=== PATIENT | male | born 1985 | race Caucasian/White ===

== ENCOUNTER 2018-03-10 00:25 | Emergency (ER) | payer SELFPAY ==
[~2018-03-10] VITALS: Ht 185.4 cm; Wt 111.0 kg
[~2018-03-10 00:25] MED LIST: AMOXICILLIN875 MG PO; ANAPROX275 MG OR; AUGMENTIN875TAB PO; FLONASE NASAL50 MCG; KEFLEX500 MG OR; LEVOTHYROXIN125 MC1 PO; LEVOTHYROXIN150 MC1 PO; LEVOTHYROXIN25 MC1; LORTAB 5/3255 MG PO; NAPROSYN500 MG PO; NO MEDS; PAROXETINE20 MG PO; PROMETHAZINE12.5 MG PO
[2018-03-10] MEDS ORDERED: TAM75CAP PO (01:53)
[2018-03-10 02:20] VITALS: BP 139/82
== END 2018-03-10 02:22 | disposition home or self-care (01) | DRG 195 ==
LOC: ED 00:25
DX: J10.1 Influenza due to other identified influenza virus with other respiratory manifestations (principal); R50.9 Fever, unspecified; R09.89 Other specified symptoms and signs involving the circulatory and respiratory systems
CPT/HCPCS: G9019

== ENCOUNTER 2018-12-21 04:14 | Emergency (ER) | payer BC ==
[~2018-12-21] VITALS: Ht 185.4 cm; Wt 104.5 kg
[~2018-12-21 04:14] MED LIST changes: +TAM75CAP PO
[2018-12-21] MEDS ORDERED: LEVOTHYROXIN200 MCG PO (04:27)
[2018-12-21 04:46] LABS: IMMATURE GRANULOCYTES 0.3 % (0.0-5.0); MEAN CELL VOLUME 86.2 fL CALC (80.0-100.0); MEAN CORPUSCULAR HGB 28.6 pG CALC (26.0-32.0); MEAN CORPUSCULAR HGB CONC 33.2 g/L CALC (32.0-36.0); NEUT# 2.52 thou/uL (1.82-7.42); RED BLOOD COUNT 5.52 mill/uL (4.70-6.10); RED CELL DISTRI WIDTH 12.5 % (11.5-15.5)
[2018-12-21 04:47] LABS: HEMATOCRIT 47.6 % (39.0-50.0); HEMOGLOBIN 15.8 g/dl (14.0-18.0)
[2018-12-21 04:55] LABS: ALKALINE PHOSPHATASE 87 u/l (38-126); AMYLASE 56 u/l (30-110); ANION GAP 15 (6-22 (CALC)); BILIRUBIN, TOTAL 0.6 mg/dL (0.0-1.4); BUN 17 mg/dL (9-20); BUN/CREATININE RATIO 16 (12-20 (CALC)); CARBON DIOXIDE 28 mmol/l (22-30); CHLORIDE 105 mmol/l (95-108); CREATININE 1.1 mg/dL (0.7-1.3); GFR > 60 ML/MIN (>=60 (CALC)); GFR FOR AFR.AMER. > 60 ML/MIN (>=60 (CALC)); LIPASE 125 u/l (23-300); POTASSIUM 4.1 mmol/l (3.5-5.1); SODIUM 143 mmol/l (137-146); TOTAL PROTEIN 7.5 g/dL (6.3-8.2)
[2018-12-21 05:14] LABS: ALBUMIN 4.6 g/dL (3.2-5.0); SGOT/AST 42 u/l (17-59)
[2018-12-21 05:31] LABS: URINE BILIRUBIN - DIPSTICK NEGATIVE (NEGATIVE); URINE BLOOD DIPSTICK SMALL (NEGATIVE); URINE COLOR YELLOW; URINE GLUCOSE - DIPSTICK NEGATIVE (NEGATIVE); URINE KETONE NEGATIVE (NEGATIVE); URINE LEUK ESTERASE NEGATIVE (NEGATIVE); URINE NITRITE - DIPSTICK NEGATIVE (Negative); URINE PH 5.5 (4.5-8.0); URINE PROTEIN - DIPSTICK NEGATIVE (NEG-TRACE); URINE UROBILINOGEN - DIPSTICK 0.2 E.U./dL (0.2)
[2018-12-21 05:32] LABS: URINE RBC 0-2 RBC/hpf (0-5)
[2018-12-21] MEDS ORDERED: LORTAB 5/3255 MG PO (05:32)
[2018-12-21] MEDS ORDERED: TAMSULOSIN0.4 MG PO (05:32)
[2018-12-21 05:45] VITALS: BP 136/76
== END 2018-12-21 05:45 | disposition home or self-care (01) | DRG 694 ==
LOC: ED 04:14
PROVIDERS: Family Medicine
DX: N13.2 Hydronephrosis with renal and ureteral calculous obstruction (principal); E03.9 Hypothyroidism, unspecified

== ENCOUNTER 2018-12-23 20:07 | Emergency (ER) | payer BC ==
[~2018-12-23] VITALS: Ht 185.4 cm; Wt 104.5 kg
[~2018-12-23 20:07] MED LIST changes: +LEVOTHYROXIN200 MCG PO; +TAMSULOSIN0.4 MG PO
[2018-12-23 21:04] LABS: HEMATOCRIT 43.3 % (39.0-50.0); HEMOGLOBIN 14.8 g/dl (14.0-18.0); IMMATURE GRANULOCYTES 0.2 % (0.0-5.0); MEAN CELL VOLUME 84.2 fL CALC (80.0-100.0); MEAN CORPUSCULAR HGB 28.8 pG CALC (26.0-32.0); MEAN CORPUSCULAR HGB CONC 34.2 g/L CALC (32.0-36.0); NEUT# 4.42 thou/uL (1.82-7.42); RED BLOOD COUNT 5.14 mill/uL (4.70-6.10); RED CELL DISTRI WIDTH 12.3 % (11.5-15.5)
[2018-12-23 21:17] LABS: URINE BILIRUBIN - DIPSTICK NEGATIVE (NEGATIVE); URINE BLOOD DIPSTICK LARGE (NEGATIVE); URINE COLOR YELLOW; URINE GLUCOSE - DIPSTICK NEGATIVE (NEGATIVE); URINE KETONE NEGATIVE (NEGATIVE); URINE LEUK ESTERASE NEGATIVE (NEGATIVE); URINE NITRITE - DIPSTICK NEGATIVE (Negative); URINE PH 5.5 (4.5-8.0); URINE PROTEIN - DIPSTICK NEGATIVE (NEG-TRACE); URINE SPECIFIC GRAVITY >=1.030; URINE UROBILINOGEN - DIPSTICK 0.2 E.U./dL (0.2)
[2018-12-23 21:24] LABS: ALBUMIN 4.5 g/dL (3.2-5.0); ALKALINE PHOSPHATASE 79 u/l (38-126); ANION GAP 16 (6-22 (CALC)); BILIRUBIN, TOTAL 0.7 mg/dL (0.0-1.4); BUN 15 mg/dL (9-20); BUN/CREATININE RATIO 11 (12-20 (CALC)); CARBON DIOXIDE 27 mmol/l (22-30); CHLORIDE 105 mmol/l (95-108); CREATININE 1.4 mg/dL (0.7-1.3); GFR 58 ML/MIN (>=60 (CALC)); GFR FOR AFR.AMER. > 60 ML/MIN (>=60 (CALC)); POTASSIUM 4.1 mmol/l (3.5-5.1); SGOT/AST 33 u/l (17-59); SODIUM 144 mmol/l (137-146); TOTAL PROTEIN 7.3 g/dL (6.3-8.2)
[2018-12-23 21:45] LABS: URINE RBC TNTC RBC/hpf (0-5); URINE SQUAMOUS EPITHELIAL CELL FEW EPI/hpf (0-FEW)
[2018-12-23 22:00] VITALS: BP 132/77
[2018-12-23] MEDS ORDERED: ZOFRAN4 M1 PO (22:32)
[2018-12-23] MEDS ORDERED: TORADOL PO (22:32)
== END 2018-12-23 22:50 | disposition home or self-care (01) | DRG 694 ==
LOC: ED 20:07
DX: N20.1 Calculus of ureter (principal); N20.0 Calculus of kidney; E03.9 Hypothyroidism, unspecified

== ENCOUNTER 2021-12-09 23:30 | Emergency (ER) | payer OTHER ==
[~2021-12-09] VITALS: Ht 185.4 cm; Wt 118.2 kg
[~2021-12-09 23:30] MED LIST changes: +TORADOL PO; +ZOFRAN4 M1 PO
[2021-12-10 01:15] VITALS: BP 139/92
[2021-12-10] MEDS ORDERED: GENTAMICIN SULF5 ML OU (01:31)
== END 2021-12-10 01:56 | disposition home or self-care (01) | DRG 125 ==
LOC: ED 23:30
DX: H10.213 Acute toxic conjunctivitis, bilateral (principal); W89.8XXA Exposure to other man-made visible and ultraviolet light, initial encounter; Y99.0 Civilian activity done for income or pay